=== PATIENT | female | born 1970 | race Caucasian/White ===

== ENCOUNTER 2016-08-28 21:17 | Emergency (ER) | payer BC, OTHER ==
--- NOTE | 2016-08-28 21:26 | UC ---
Ear Complaint HPI - HPI Summary HPI Summary: right ear pain began yesterday--pain is so bad it makes her nauseated - History of Current Complaint Chief Complaint: UCEar Stated Complaint: EAR PAIN Time Seen by Provider: 08/28/16 21:18 Hx Obtained From: Patient Hx Last Menstrual Period: 11/22/15 ?: No Onset/Duration: Sudden Onset, Lasting Days - 1, Still Present Severity Initially: Moderate Severity Currently: Moderate Pain Intensity: 8 Pain Scale Used: 0-10 Numeric - Allergies/Home Medications Allergies/Adverse Reactions: Allergies Allergy/AdvReac Type Severity Reaction Status Date / Time Cefaclor [From Ceclor] Allergy Hives Verified 12/19/15 17:11 Latex Allergy Hives Verified 12/19/15 17:11 Morphine Allergy Hypoxic Verified 12/19/15 17:11 Siezures Home Medications: Home Medications Sertraline* [Zoloft*] 08/28/16 [History] PMH/Surg Hx/FS Hx/Imm Hx Previously Healthy: Yes Respiratory History Of: Reports: Asthma - Surgical History Surgical History: Yes Surgery Procedure, Year, and Place: L ankle, nasal, R foot bone spur, wisdom teeth. carmelo - Family History Known Family History: Positive: Hypertension - Social History Occupation: Employed Full-time Lives: With Family Alcohol Use: None Substance Use Type: None Smoking Status (MU): Former Smoker When Did the Patient Quit Smoking/Using Tobacco: 1995 Household Exposure Type: Cigarettes Review of Systems Constitutional: Chills, Fatigue Skin: Negative Eyes: Negative ENT: Ear Ache - right Respiratory: Negative Cardiovascular: Negative Gastrointestinal: Negative Genitourinary: Negative Motor: Negative Neurovascular: Negative Musculoskeletal: Negative Neurological: Negative Psychological: Negative All Other Systems Reviewed And Are Negative: Yes Physical Exam Triage Information Reviewed: Yes Appearance: Well-Appearing, Well-Nourished, Pain Distress Vital Signs Reviewed: Yes Eye Exam: Normal Eyes: Positive: Conjunctiva Clear ENT Exam: Normal ENT: Positive: Normal ENT inspection, Hearing grossly normal, Pharynx normal, TMs normal - Left, TM red - right. Negative: Nasal congestion, Nasal drainage, Tonsillar swelling, Tonsillar exudate, Trismus, Muffled/hoarse voice Dental Exam: Normal Neck exam: Normal Neck: Positive: Supple, Nontender, No Lymphadenopathy Respiratory Exam: Normal Respiratory: Positive: Chest non-tender, Lungs clear, Normal breath sounds, No respiratory distress, No accessory muscle use Cardiovascular Exam: Normal Cardiovascular: Positive: RRR, No Murmur, Pulses Normal, Brisk Capillary Refill Musculoskeletal Exam: Normal Musculoskeletal: Positive: Strength Intact, ROM Intact, No Edema Neurological Exam: Normal Neurological: Positive: Alert, Muscle Tone Normal Psychological Exam: Normal Skin Exam: Normal Ear Complaint Course/Dx - Course Course Of Treatment: pain medication, antibiodic ear dropps, follow with pcp - Differential Dx/Diagnosis Differential Diagnosis/HQI/PQRI: Otitis Externa, Otitis Media, Perforated TM, URI Provider Diagnoses: Right ear pain-- Discharge - Discharge Plan Condition: Stable Disposition: HOME Prescriptions: Ciproflox/Dexameth OTIC.SUSP* [Ciprodex OTIC.SUSP*] 4 drop .SEE ORDER BID #1 [id number] Patient Education Materials: Otitis Externa (ED), Ruptured Eardrum (ED) Referrals: SAHIL Granados [Primary Care Provider] - 08/29/16 4:00 pm
[2016-08-28 21:32] VITALS: BP 131/73
== END 2016-08-28 21:36 | disposition home or self-care (01) ==
LOC: UCEAST 21:17
DX: H92.01 Otalgia, right ear (principal); J45.909 Unspecified asthma, uncomplicated; Z88.5 Allergy status to narcotic agent; Z91.040 Latex allergy status; Z87.891 Personal history of nicotine dependence
CPT/HCPCS: 99212; G0463

== ENCOUNTER 2017-01-19 08:31 | Emergency (ER) | payer BC ==
[2017-01-19 08:40] VITALS: BP 116/73
[2017-01-19] MEDS ORDERED: DOXYcycline CAP(*) 100 MG PO ONE (10:02)
[2017-01-19] MEDS ORDERED: Tetan/Diph/Pertus SYR(Tdap)* 0.5 ML SYR(BOOSTRIX) use SYR IM ONE (10:04)
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
== END 2017-01-19 10:16 | disposition home or self-care (01) ==
LOC: UCCORT 08:31
DX: S51.852A Open bite of left forearm, initial encounter (principal); L03.114 Cellulitis of left upper limb; W55.01XA Bitten by cat, initial encounter; Z88.1 Allergy status to other antibiotic agents; Z88.5 Allergy status to narcotic agent; Z91.040 Latex allergy status; Z87.891 Personal history of nicotine dependence; Z77.22 Contact with and (suspected) exposure to environmental tobacco smoke (acute) (chronic)
CPT/HCPCS: 90471; 90715; 99212; A9270-GY; G0463

== ENCOUNTER 2017-02-25 16:35 | Emergency (ER) | payer BC ==
[2017-02-25 16:56] VITALS: BP 132/75
--- NOTE | 2017-02-25 17:02 | UC ---
Respiratory Complaint HPI - HPI Summary HPI Summary: 47 YEAR OLD MALE PRESENTS WITH COMPLAINS OF COUGH AND CONGESTION. - History of Current Complaint Chief Complaint: UCRespiratory Stated Complaint: UPPER RESPIRATORY Time Seen by Provider: 02/25/17 16:58 Hx Obtained From: Patient Hx Last Menstrual Period: 02/20/17 Severity Initially: Moderate Severity Currently: Moderate - Allergies/Home Medications Allergies/Adverse Reactions: Allergies Allergy/AdvReac Type Severity Reaction Status Date / Time Cefaclor [From Ceclor] Allergy Hives Verified 02/25/17 16:56 Latex Allergy Hives Verified 02/25/17 16:56 Morphine Allergy Hypoxic Verified 02/25/17 16:56 Siezures Home Medications: Home Medications Albuterol HFA INHALER* [Ventolin HFA Inhaler*] 2 puff INH Q6H PRN 02/25/17 [ History Confirmed 02/25/17] PMH/Surg Hx/FS Hx/Imm Hx - Surgical History Surgical History: Yes Surgery Procedure, Year, and Place: L ankle, nasal, R foot bone spur, wisdom teeth. carmelo - Family History Known Family History: Positive: Hypertension - Social History Alcohol Use: Occasionally Substance Use Type: None Smoking Status (MU): Former Smoker When Did the Patient Quit Smoking/Using Tobacco: 1995 Household Exposure Type: Cigarettes - Immunization History Most Recent Influenza Vaccination: no 2016 Review of Systems Constitutional: Negative Skin: Negative Eyes: Negative ENT: Sore Throat, Ear Ache, Nasal Discharge, Sinus Congestion, Sinus Pain/ Tenderness Respiratory: Negative Cardiovascular: Negative Gastrointestinal: Negative Genitourinary: Negative Motor: Negative Neurovascular: Negative Musculoskeletal: Negative Neurological: Negative Psychological: Negative All Other Systems Reviewed And Are Negative: Yes Physical Exam Triage Information Reviewed: Yes Vital Signs: Initial Vital Signs Temp 36.7 C 02/25/17 16:52 Pulse 63 02/25/17 16:52 Resp 17 02/25/17 16:52 BP 132/75 02/25/17 16:52 Pulse Ox 100 02/25/17 16:52 Eye Exam: Normal ENT Exam: Normal Dental Exam: Normal Neck exam: Normal Neck: Positive: 1 Respiratory: Positive: Wheezing Cardiovascular Exam: Normal Abdominal Exam: Normal Musculoskeletal Exam: Normal Neurological Exam: Normal Psychological Exam: Normal Skin Exam: Normal UC Diagnostic Evaluation - Laboratory O2 Sat by Pulse Oximetry: 100 Respiratory Course/Dx - Differential Dx/Diagnosis Provider Diagnoses: COUGH. WHEEZING Discharge - Discharge Plan Condition: Stable Disposition: HOME Prescriptions: Albuterol HFA INHALER* [Ventolin HFA Inhaler*] 1 puff INH Q6H PRN #1 mdi PRN Reason: Wheezing Azithromyxin CORY (NF) [Z-Cory (Zithromax) 250 mg tabs #6] 2 tab PO .TODAY, THEN 1 DAILY #6 tab Methylprednisolone [Medrol Dosepak 4 MG*] 4 mg PO .SEE CORY INSTRUCTION #21 tab Promethazine-Dm [Promethazine/Dextromethor 6.25-15 mg/5Ml] 1 teasp PO BEDTIME PRN #120 ml PRN Reason: Cough Patient Education Materials: Sinusitis (ED) Referrals: SAHIL Granados [Primary Care Provider] -
--- NOTE | 2017-02-25 17:45 | RAD ---
INDICATION: Cough COMPARISON: None TECHNIQUE: PA and lateral views of the chest were obtained. FINDINGS: The heart and mediastinum are normal in size and contour. The lungs are grossly clear. There is no evidence of large pleural effusion. Visualized bones are normal for the patient's age. There is no radiographic evidence of free air beneath the diaphragm IMPRESSION: No radiographic evidence of acute cardiopulmonary disease.
== END 2017-02-25 17:59 | disposition home or self-care (01) ==
LOC: UCCORT 16:35
DX: R05 Cough (principal); R06.2 Wheezing; Z88.5 Allergy status to narcotic agent; Z88.1 Allergy status to other antibiotic agents; Z91.040 Latex allergy status; Z87.891 Personal history of nicotine dependence
CPT/HCPCS: 71020; 99212; G0463

== ENCOUNTER 2017-04-17 20:01 | Emergency (ER) | payer SELFPAY ==
[2017-04-17 20:21] VITALS: BP 141/82
[2017-04-17] MEDS ORDERED: DOXYcycline CAP(*) 100 MG PO ONE (20:38)
[2017-04-17] MEDS ORDERED: metroNIDAZOLE TAB* 250 MG PO ONE (20:38)
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
== END 2017-04-17 21:15 | disposition home or self-care (01) ==
LOC: UCCORT 20:01
DX: S51.831A Puncture wound without foreign body of right forearm, initial encounter (principal); W50.3XXA Accidental bite by another person, initial encounter; Y93.89 Activity, other specified; Y92.9 Unspecified place or not applicable; Y99.0 Civilian activity done for income or pay; Z90.49 Acquired absence of other specified parts of digestive tract; Z88.5 Allergy status to narcotic agent; Z88.1 Allergy status to other antibiotic agents; Z91.040 Latex allergy status; Z87.891 Personal history of nicotine dependence
CPT/HCPCS: 99213; A9270-GY; G0463

== ENCOUNTER 2017-08-10 21:45 | Emergency (ER) | payer OTHER ==
[2017-08-10 21:53] VITALS: BP 130/86
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
== END 2017-08-10 22:33 | disposition home or self-care (01) ==
LOC: UCCORT 21:45
DX: T14.8XXD Other injury of unspecified body region, subsequent encounter (principal); W50.3XXD Accidental bite by another person, subsequent encounter
CPT/HCPCS: 99211; G0463

== ENCOUNTER 2018-03-07 10:02 | Emergency (ER) | payer BC, OTHER ==
[2018-03-07 11:22] VITALS: BP 132/89
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
== END 2018-03-07 12:22 | disposition home or self-care (01) ==
LOC: UCCORT 10:02
DX: J20.9 Acute bronchitis, unspecified (principal)
CPT/HCPCS: 99212; G0463

== ENCOUNTER 2019-04-01 14:38 | Emergency (ER) | payer SELFPAY ==
[2019-04-01 15:12] VITALS: BP 154/98
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
== END 2019-04-01 15:58 | disposition home or self-care (01) ==
LOC: UCCORT 14:38
DX: S60.221A Contusion of right hand, initial encounter (principal); J45.909 Unspecified asthma, uncomplicated; Z88.1 Allergy status to other antibiotic agents; Z88.5 Allergy status to narcotic agent; Z91.040 Latex allergy status; Z91.041 Radiographic dye allergy status; Z87.891 Personal history of nicotine dependence; W50.0XXA Accidental hit or strike by another person, initial encounter; Y93.F9 Activity, other caregiving; Y92.9 Unspecified place or not applicable; Y99.0 Civilian activity done for income or pay
CPT/HCPCS: 99212; G0463

== ENCOUNTER 2019-04-24 09:12 | Emergency (ER) | payer BC ==
[2019-04-24 10:22] VITALS: BP 129/72
--- NOTE | 2019-04-24 10:29 | UC ---
Throat Pain/Nasal [place] HPI - HPI Summary HPI Summary: Patient is a 49-year-old female presents to urgent care with several days of progressive head congestion sinus congestion postnasal drip and cough. Patient denies nausea vomiting. Patient states she feels is now settled in her chest and she is coughing up yellow green sputum. Patient does have asthma. Patient has an inhaler but it . 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 Patient states she is not . Patient medications as entered in the EMR by triage was reviewed this visit. - History of Current Complaint Chief Complaint: UCRespiratory Stated Complaint: ST,HEADACHE,COUGH,B/L EAR Time Seen by Provider: 04/24/19 10:21 Hx Obtained From: Patient Hx Last Menstrual Period: 04/01/19 ?: No Severity: Mild Pain Intensity: 0 Pain Scale Used: 0-10 Numeric - Allergies/Home Medications Allergies/Adverse Reactions: Allergies Allergy/AdvReac Type Severity Reaction Status Date / Time morphine Allergy Severe SEIZURES Verified 04/24/19 10:19 cefaclor [From Ceclor] Allergy Intermediate Hives Verified 04/24/19 10:19 latex Allergy Intermediate Hives Verified 04/24/19 10:19 SEDATION CONTRAST Allergy CARDIAC Uncoded 04/24/19 10:19 EVENT AND SEVERE VOMITTING PMH/Surg Hx/FS Hx/Imm Hx Previously Healthy: Yes - Surgical History Surgical History: Yes Surgery Procedure, Year, and Place: L ankle,. nasal,. R foot bone spur. wisdom teeth. carmelo - Family History Known Family History: Positive: Hypertension, Non-Contributory - Social History Occupation: Employed Full-time - RECREATION THERAPY AIDE Lives: With Family Alcohol Use: None Substance Use Type: None Smoking Status (MU): Former Smoker Have You Smoked in the Last Year: No When Did the Patient Quit Smoking/Using Tobacco: 1995 Household Exposure Type: Cigarettes - Immunization History Most Recent Influenza Vaccination: no 2016 Review of Systems All Other Systems Reviewed And Are Negative: Yes Constitutional: Positive: Fatigue ENT: Positive: Sore Throat, Nasal Discharge, Sinus Congestion, Sinus Pain/ Tenderness Respiratory: Positive: Cough Cardiovascular: Positive: Negative Is Patient Immunocompromised?: No Physical Exam - Summary Physical Exam Summary: Vital Signs Reviewed: Yes A+Ox3, no distress Eyes: Conjunctiva Clear, ISIS. EOM intact and full ENT: Hearing grossly normal TM x 2 clear, turbinates inflammed and boggy, + PND , mmoist, uvula midline, no exudate, + erythema Neck: Positive: Supple Respiratory: Positive: No respiratory distress, No accessory muscle use + coarse intermittent cough, no w/r Cardiovascular: RRR nl s1, s2 no m/r CBT <2 sec abd soft + BS nt/nd no guarding, no distension Musculoskeletal Exam: ALONSO x 4 without difficulty Strength Intact, ROM Intact Neurological: Positive: Alert, + sensation throughout Psychological: Positive: Normal Response To examiner Skin: Positive: no rash, no ecchymosis Triage Information Reviewed: Yes Vital Signs: Initial Vital Signs Temp 97.1 F 04/24/19 10:19 Pulse 81 04/24/19 10:19 Resp 14 04/24/19 10:19 BP 129/72 04/24/19 10:19 Pulse Ox 100 04/24/19 10:19 Re-Evaluation - Re-Evaluation First Eval Comment: influenza and strep neg. hydrate. motrin/apap. rest. mdi. secretion precaution. strict return precautions Throat Pain/Nasal Course/Dx - Course Course Of Treatment: Patient presents to urgent care with 6 days of progressive head congestion postnasal drip cough. Patient reports green productive sputum. No nausea or vomiting. No fever, chills, rash. Patient does have asthma and has been held with she's tried. Patient works at [employer]. Patient's did receive flu shot. Patient vital signs stable. Patient does have exam consistent with rhinosinusitis per a patient with mild fluid in her right ear. Additionally patient does have coarse cough. We'll check a flu and strep based on where she works. Anticipate any abx, MDI and spacer. Patient window for Tamiflu R workup was positive. Patient comfortable in agreement with plan. - Differential Dx/Diagnosis Provider Diagnosis: Rhinosinusitis Discharge ED - Sign-Out/Discharge Documenting (check all that apply): Patient Departure All imaging exams completed and their final reports reviewed: No Studies - Discharge Plan Condition: Stable Disposition: HOME Prescriptions: Albuterol HFA INHALER* [Ventolin HFA Inhaler*] 2 puff INH Q4H PRN #1 mdi PRN Reason: wheeze DOXYcycline CAP(*) [DOXYcycline 100MG CAP(*)] 100 mg PO BID #20 cap predniSONE 50 mg TAB [Deltasone 50 mg TAB] 50 mg PO DAILY #5 tab Patient Education Materials: Acute Bronchitis (ED), Rhinosinusitis (ED) Referrals: Blair Cee PA [Primary Care Provider] - Additional Instructions: -Take antibiotics and prednisone exactly as prescribed until gone -Use your albuterol puffer - 2 puffs every 4 hours for the next 2 days - then as needed -Stay well hydrated - avoid excess caffeine and all alcohol - eat regular, healthy meals - humidify the air in the room where you sleep - boil water, run a hot steam shower, vaporizer, cups of water by heat register - okay to take over the counter decongestant and cough medication -- These infections are spread by secretions - do NOT share eating or drinking utensils - clean items you share with other people such as cell phones, computer mouse, TV remote, computer tablets,etc.. Once you have been antibiotics for 2 days, change your toothbrush and your pillowcase. -Contact your doctor to arrange a follow-up appointment this week. Call your doctor, return here or go to the emergency department with any questions or concerns - Billing Disposition and Condition Condition: STABLE Disposition: Home
[2019-04-24 11:10] LABS: Influenza A Molecular NEGATIVE (Negative); Influenza B Molecular NEGATIVE (Negative)
== END 2019-04-24 11:24 | disposition home or self-care (01) ==
LOC: UCCORT 09:12
DX: J32.9 Chronic sinusitis, unspecified (principal); R53.83 Other fatigue; R05 Cough; R09.82 Postnasal drip; Z88.5 Allergy status to narcotic agent; Z91.040 Latex allergy status; Z91.041 Radiographic dye allergy status; Z88.1 Allergy status to other antibiotic agents; Z87.891 Personal history of nicotine dependence
CPT/HCPCS: 87651; 99212; G0463

== ENCOUNTER 2019-11-29 08:37 | Observation (INO) ==
[~2019-11-29 08:37] MED LIST: Buffered Lidocaine 1% SYRIN 1 ml INTRADERM ONE; Dexamethasone IV 4 MG/ML VIAL 1 ml VIAL IV SLOW PU ONE; Famotidine IV 10 MG/ML 2 ml VIAL (20 mg) IV ONE; Gentamicin ADULT 340 MG in NS 0.9% 100 ml BAG 100 ML IVPB ONE; Lactated Ringers 1000 ml BAG 1,000 ML IV SCH
[2019-11-29] MEDS ORDERED: Dexamethasone IV 4 MG/ML 5 ML VIAL (20 MG) ONE (09:12)
[2019-11-29] MEDS ORDERED: Clindamycin 900 MG/D5W BAG 900 MG/50 ML BAG IVPB ONE (09:12)
[2019-11-29] MEDS ORDERED: Famotidine IV 10 MG/ML 2 ml VIAL (20 mg) ONE (09:13)
[2019-11-29] MEDS ORDERED: Ondansetron 4 mg VIAL 2 MG/ML 2 ml VIAL ONE (09:34)
[2019-11-29] MEDS ORDERED: Dexamethasone IV 4 MG/ML VIAL 1 ml VIAL ONE (09:34)
[2019-11-29] MEDS ORDERED: fentaNYL 250 mcg/5 ml 50 MCG/ML 5 ml VIAL (250 MCG) ONE (09:35)
[2019-11-29] MEDS ORDERED: Propofol 10 MG/ML 20 ML BTL ONE (09:35)
[2019-11-29] MEDS ORDERED: Midazolam 2 mg/2 ml VIAL 1 mg/ml 2 ml VIAL (2 mg) ONE (09:37)
[2019-11-29] MEDS ORDERED: Rocuronium 50 mg VIAL 10 mg/ml 5 ml VIAL (50 mg) ONE ×2 (09:37→13:13)
[2019-11-29] MEDS ORDERED: Lidocaine 2% PF 5 ML VIAL ONE (09:37)
[2019-11-29 09:53] LABS: Hematocrit 39 % (35-47); Hemoglobin 12.8 g/dL (12.0-16.0); Mean Corpuscular HGB Conc 33 g/dL (31-36); Mean Corpuscular Hemoglobin 26 pg (27-31); Mean Corpuscular Volume 80 fL (80-97); Mean Platelet Volume 8.7 fL (7.4-10.4); Platelet Count 211 10^3/uL (150-450); Red Blood Count 4.85 10^6 /uL (3.70-4.87); Red Cell Distribution Width 17 % (10-15); White Blood Count 3.6 10^3/uL (3.5-10.8)
[2019-11-29] MEDS ORDERED: Bupivacaine 0.5% SDV PF 30ML VIAL ONE (11:17)
[2019-11-29] MEDS ORDERED: Artificial Tear OPHTH.OINT 3.5 GM ONE (11:33)
[2019-11-29] MEDS ORDERED: Fluorescein 10% INJ 100 MG/ML AMP ONE (16:17)
[2019-11-29] MEDS ORDERED: HYDROmorphone 1 MG/1 ML SYRINGE ONE (16:25)
[2019-11-29] MEDS ORDERED: oxyCODONE/Acetamin 5/325 mg TAB PO PRN ×2 (17:18)
[2019-11-29] MEDS ORDERED: Ondansetron 4 mg VIAL 2 MG/ML 2 ml VIAL IV PRN ×2 (17:18→17:55)
[2019-11-29] MEDS ORDERED: Naloxone 0.4 mg VIAL 0.4 mg/ml 1 ml VIAL IV PRN (17:55)
[2019-11-29] MEDS ORDERED: HYDROmorphone 1 MG/1 ML SYRINGE IV PRN (17:55)
[2019-11-29] MEDS ORDERED: fentaNYL 100 mcg/2 ml 50 MCG/ML VIAL IV PRN (17:55)
[2019-11-29] MEDS ORDERED: Albuterol HFA INHALER 8 gm MDI INH PRN (19:59)
[2019-11-30 05:16] LABS: ABS Lymphocytes 0.7 10^3/ul (1.0-4.8); ABS Monocytes 0.6 10^3/ul (0-0.8); ABS Neutrophils 9.8 10^3/ul (1.5-7.7); Hematocrit 36 % (35-47); Hemoglobin 11.7 g/dL (12.0-16.0); Lymphocyte % 6.1 %; Mean Corpuscular HGB Conc 33 g/dL (31-36); Mean Corpuscular Hemoglobin 27 pg (27-31); Mean Corpuscular Volume 82 fL (80-97); Mean Platelet Volume 8.9 fL (7.4-10.4); Platelet Count 179 10^3/uL (150-450); Red Blood Count 4.37 10^6 /uL (3.70-4.87); Red Cell Distribution Width 17 % (10-15); White Blood Count 11.1 10^3/uL (3.5-10.8)
[2019-11-30 11:18] VITALS: BP 105/51
== END 2019-11-30 13:00 | disposition home or self-care (01) ==
LOC: SSU 08:37 → OR 08:37
PROVIDERS: ADMIT Obstetrics & Gynecology; ATTEND Obstetrics & Gynecology